=== PATIENT | female | born 1945 | race African-American/Black ===

== ENCOUNTER 2017-05-11 22:37 | Inpatient (IN) | payer MEDICARE, BC ==
[2017-05-11 23:05] LABS: BILIRUBIN,URINE NEGATIVE (NEG); COLOR,URINE YELLOW; GLUCOSE,URINE NEGATIVE (NEG); NITRITE,URINE NEGATIVE (NEG); PH,URINE 5.5; PROTEIN,URINE NEGATIVE (NEG-TRACE)
[2017-05-11 23:13] LABS: CLARITY,URINE CLEAR
[2017-05-11 23:19] LABS: BACTERIA,URINE MANY /HPF (0-FEW); RBC,URINE 0 /HPF (0-2); SQUAMOUS EPITHELIAL CELL,UR MOD /LPF
[2017-05-11] MEDS: DEXAMETHASONE SOD PHOS 4 MG/ML VIAL IV (23:30)
[2017-05-11] MEDS: IPRATRPIUM/ALBUTEROL 0.5/2.5MG 3 ML NEBU. NEB (23:30)
[2017-05-11] MEDS: hydrALAZINE 20 MG/ML VIAL. IVP (23:30)
[2017-05-11 23:39] LABS: INFLUENZA A PATIENT POSITIVE (NEGATIVE); INFLUENZA B PATIENT NEGATIVE (NEGATIVE); OBC FLU VALID
[2017-05-11 23:53] LABS: BASE EXCESS ABG 2 mmol/L (-3-3); HCO3 ABG 23 mmol/L (21-28); PCO2 ABG 28 mmHg (35-46); PH ABG 7.53 (7.35-7.45); PO2 ABG 106 mmHg (65-108); SAT O2 ABG 98 % (92-99)
[2017-05-11 23:57] LABS: ADD MAN DIFF? NO
[2017-05-11 23:59] LABS: BASO % 1 % (0-3); EOS % 1 % (0-3); HEMATOCRIT 41.3 % (36.0-47.0); HEMOGLOBIN 13.8 g/dL (12.0-15.5); LYMPH # 1.6 x10^3/uL (1.0-4.8); LYMPH % 40 % (24-48); MEAN CORPUSCULAR HEMOGLOBIN 26 pg (25-35); MEAN CORPUSCULAR HGB CONC 34 g/dL (31-37); MEAN CORPUSCULAR VOLUME 79 fL (79-100); MONO # 0.6 x10^3/uL (0.0-1.1); MONO % 15 % (0-9); NEUT # 1.7 x10^3uL (1.8-7.7); NEUT % 43 % (31-73); PLATELET COUNT 221 x10^3/uL (140-400); RED BLOOD COUNT 5.24 x10^6/uL (3.50-5.40); RED CELL DISTRIBUTION WIDTH 13.7 % (11.5-14.5)
[2017-05-12 00:14] LABS: ANION GAP 9 (6-14); BLOOD UREA NITROGEN 26 mg/dL (7-20); BUN/CREATININE RATIO 24 (6-20); CALCIUM 8.7 mg/dL (8.5-10.1); CARBON DIOXIDE 24 mmol/L (21-32); CHLORIDE 104 mmol/L (98-107); CREATININE 1.1 mg/dL (0.6-1.0); GFR 48.7; GLUCOSE 193 mg/dL (70-99); SODIUM 137 mmol/L (136-145)
[2017-05-12 00:20] LABS: ALBUMIN 3.3 g/dL (3.4-5.0); ALK PHOS 156 U/L (46-116); ALT (SGPT) 22 U/L (14-59); AST (SGOT) 15 U/L (15-37); LIPASE 221 U/L (73-393); TOTAL BILIRUBIN 0.2 mg/dL (0.2-1.0); TOTAL PROTEIN 6.5 g/dL (6.4-8.2)
[2017-05-12 00:22] LABS: LACTIC ACID 0.9 mmol/L (0.4-2.0)
[2017-05-12] MEDS ORDERED: fentaNYL PF VIAL 100 MCG/2 ML VIAL IV (01:00)
[2017-05-12] MEDS ORDERED: ACETAMINOPHEN 325 MG TABLET. PO (01:00)
[2017-05-12] MEDS ORDERED: ONDANSETRON PF 4 MG/2 ML VIAL. IV (01:00)
[2017-05-12] MEDS: OSELTAMIVIR 75 MG CAPSULE PO ×3 (01:16→21:00)
[2017-05-12] MEDS: IV NORMAL SALINE 1000ML BAG 1,000 ML IV ×3 (02:56→11:56)
[2017-05-12] MEDS: INSULIN ASPART 300 UNITS/3 ML INSULN.PEN SQ ×2 (03:11→17:13)
[2017-05-12] MEDS ORDERED: POTASSIUM CHLORIDE 10 MEQ TABLET.ER. PO (03:15)
[2017-05-12] MEDS: LABETALOL 20 MG/4 ML DISP.SYRIN. IVP (03:20)
[2017-05-12] MEDS: POTASSIUM CHLORIDE 20 MEQ TABLET.ER. PO ×2 (03:31→03:35)
[2017-05-12 04:03] LABS: POC GLUCOSE 290 mg/dL (70-99)
[2017-05-12] MEDS ORDERED: FUROSEMIDE 20 MG TABLET PO (05:15)
[2017-05-12] MEDS ORDERED: ASCORBIC ACID 500 MG TABLET PO (05:15)
[2017-05-12 08:40] LABS: POC GLUCOSE 245 mg/dL (70-99)
[2017-05-12] MEDS: LOSARTAN POTASSIUM 50 MG TABLET. PO (08:46)
[2017-05-12] MEDS: CHOLECALCIFEROL (VITAMIN D3) 1,000 UNIT TABLET PO (08:47)
[2017-05-12] MEDS: VITAMIN B COMPLEX TABLET. PO (08:47)
[2017-05-12] MEDS: PANTOPRAZOLE 40 MG TABLET.DR. PO (08:48)
[2017-05-12] MEDS: OMEGA-3 FATTY ACIDS/FISH OIL 1,000 MG CAPSULE. PO ×2 (08:48→21:00)
[2017-05-12] MEDS: hydrALAZINE 25 MG TABLET PO ×4 (08:48→21:00)
[2017-05-12] MEDS: MULTIVITAMIN with MINERAL TABLET. PO (08:49)
[2017-05-12] MEDS: CALCIUM CARBONATE 500 MG TABLET PO ×2 (08:49→16:59)
[2017-05-12] MEDS: POTASSIUM CHLORIDE 10 MEQ TABLET.ER. PO ×2 (08:49→16:58)
[2017-05-12] MEDS: NON FORMULARY ITEM (Difluprednate (Durezol) 1 DROP) OP (09:00)
[2017-05-12] MEDS: TIMOLOL OP (09:00)
[2017-05-12] MEDS: OFLOXACIN EACHEYE (09:00)
[2017-05-12] MEDS: NON FORMULARY ITEM (Brinzolamide/Brimonid Tart (Simbrinza 1%-0.2% Eye Drops) 1 DROP) OP (09:00)
[2017-05-12] MEDS: INSULIN DETEMIR 300 UNITS/3 ML INSULN.PEN. SQ (09:07)
[2017-05-12] MEDS: cefTRIAXone IV Push 1 GM VIAL. IVP (11:54)
[2017-05-12 12:24] LABS: POC GLUCOSE 303 mg/dL (70-99)
[2017-05-12] MEDS: DUREZOL EYE OD ×3 (13:00→21:00)
[2017-05-12] MEDS: OFLOXACIN OD ×3 (13:00→21:00)
[2017-05-12] MEDS ORDERED: DEXTROSE 50% 25 GM / 50ML DISP.SYRIN. IV (13:15)
[2017-05-12] MEDS: SIMBRINZA EYE OD ×2 (14:00→21:00)
[2017-05-12 16:32] LABS: POC GLUCOSE 232 mg/dL (70-99)
[2017-05-12] MEDS: DOXYCYCLINE HYCLATE 100 MG TABLET PO ×2 (16:58→21:00)
[2017-05-12] MEDS: LACTOBACILLUS RHAMNOSUS GG 1 CAPSULE. PO (21:00)
[2017-05-12] MEDS: TIMOLOL 0.5% OD (21:00)
[2017-05-12] MEDS: EYE OD (21:00)
[2017-05-12 21:26] LABS: POC GLUCOSE 189 mg/dL (70-99)
[2017-05-13] MEDS: IV NORMAL SALINE 1000ML BAG 1,000 ML IV ×2 (00:05→10:29)
[2017-05-13 04:50] LABS: ADD MAN DIFF? NO
[2017-05-13 05:03] LABS: BASO % 0 % (0-3); EOS % 0 % (0-3); HEMATOCRIT 39.1 % (36.0-47.0); HEMOGLOBIN 12.8 g/dL (12.0-15.5); LYMPH # 1.1 x10^3/uL (1.0-4.8); LYMPH % 16 % (24-48); MEAN CORPUSCULAR HEMOGLOBIN 26 pg (25-35); MEAN CORPUSCULAR HGB CONC 33 g/dL (31-37); MEAN CORPUSCULAR VOLUME 80 fL (79-100); MONO # 0.7 x10^3/uL (0.0-1.1); MONO % 10 % (0-9); NEUT # 5.1 x10^3uL (1.8-7.7); NEUT % 74 % (31-73); PLATELET COUNT 210 x10^3/uL (140-400); RED BLOOD COUNT 4.88 x10^6/uL (3.50-5.40); RED CELL DISTRIBUTION WIDTH 13.5 % (11.5-14.5); WHITE BLOOD COUNT 6.9 x10^3/uL (4.0-11.0)
[2017-05-13 05:12] LABS: ANION GAP 9 (6-14); BLOOD UREA NITROGEN 28 mg/dL (7-20); CALCIUM 8.7 mg/dL (8.5-10.1); CARBON DIOXIDE 23 mmol/L (21-32); CHLORIDE 105 mmol/L (98-107); CREATININE 1.1 mg/dL (0.6-1.0); GFR 58.9; GLUCOSE 237 mg/dL (70-99); POTASSIUM 4.3 mmol/L (3.5-5.1); SODIUM 137 mmol/L (136-145)
[2017-05-13] MEDS: PANTOPRAZOLE 40 MG TABLET.DR. PO (06:33)
[2017-05-13] MEDS: OSELTAMIVIR 75 MG CAPSULE PO ×2 (08:15→20:45)
[2017-05-13] MEDS: CHOLECALCIFEROL (VITAMIN D3) 1,000 UNIT TABLET PO (08:16)
[2017-05-13] MEDS: hydrALAZINE 25 MG TABLET PO ×4 (08:16→20:45)
[2017-05-13] MEDS: VITAMIN B COMPLEX TABLET. PO (08:17)
[2017-05-13] MEDS: LACTOBACILLUS RHAMNOSUS GG 1 CAPSULE. PO ×2 (08:17→20:45)
[2017-05-13] MEDS: DOXYCYCLINE HYCLATE 100 MG TABLET PO ×2 (08:18→20:45)
[2017-05-13] MEDS: POTASSIUM CHLORIDE 10 MEQ TABLET.ER. PO ×2 (08:18→17:38)
[2017-05-13] MEDS: CALCIUM CARBONATE 500 MG TABLET PO ×2 (08:18→17:38)
[2017-05-13] MEDS: MULTIVITAMIN with MINERAL TABLET. PO (08:18)
[2017-05-13] MEDS: TIMOLOL 0.5% OD ×2 (08:19→20:46)
[2017-05-13] MEDS: EYE OD ×2 (08:19→20:46)
[2017-05-13] MEDS: SIMBRINZA EYE OD ×3 (08:19→20:46)
[2017-05-13] MEDS: OFLOXACIN OD ×4 (08:20→20:46)
[2017-05-13] MEDS: DUREZOL EYE OD ×4 (08:20→20:46)
[2017-05-13] MEDS: OMEGA-3 FATTY ACIDS/FISH OIL 1,000 MG CAPSULE. PO ×2 (08:23→20:45)
[2017-05-13] MEDS: LOSARTAN POTASSIUM 50 MG TABLET. PO (08:23)
[2017-05-13] MEDS: INSULIN ASPART 300 UNITS/3 ML INSULN.PEN SQ ×3 (08:28→17:00)
[2017-05-13] MEDS: INSULIN DETEMIR 300 UNITS/3 ML INSULN.PEN. SQ (08:28)
[2017-05-13 08:36] LABS: POC GLUCOSE 189 mg/dL (70-99)
[2017-05-13] MEDS: cefTRIAXone IV Push 1 GM VIAL. IVP (10:29)
[2017-05-13 12:53] LABS: POC GLUCOSE 165 mg/dL (70-99)
[2017-05-13 17:26] LABS: POC GLUCOSE 112 mg/dL (70-99)
[2017-05-13 21:27] LABS: POC GLUCOSE 172 mg/dL (70-99)
[2017-05-14] MEDS: IV NORMAL SALINE 1000ML BAG 1,000 ML IV (02:45)
[2017-05-14] MEDS: LABETALOL 20 MG/4 ML DISP.SYRIN. IVP (03:54)
[2017-05-14 04:50] LABS: ADD MAN DIFF? NO
[2017-05-14 05:00] LABS: BASO % 0 % (0-3); EOS % 0 % (0-3); HEMATOCRIT 42.5 % (36.0-47.0); HEMOGLOBIN 13.6 g/dL (12.0-15.5); LYMPH # 1.7 x10^3/uL (1.0-4.8); LYMPH % 24 % (24-48); MEAN CORPUSCULAR HEMOGLOBIN 26 pg (25-35); MEAN CORPUSCULAR HGB CONC 32 g/dL (31-37); MEAN CORPUSCULAR VOLUME 80 fL (79-100); MONO # 0.7 x10^3/uL (0.0-1.1); MONO % 10 % (0-9); NEUT # 4.6 x10^3uL (1.8-7.7); NEUT % 66 % (31-73); PLATELET COUNT 235 x10^3/uL (140-400); RED BLOOD COUNT 5.31 x10^6/uL (3.50-5.40); RED CELL DISTRIBUTION WIDTH 13.7 % (11.5-14.5)
[2017-05-14 05:23] LABS: ANION GAP 9 (6-14); BLOOD UREA NITROGEN 24 mg/dL (7-20); CALCIUM 9.1 mg/dL (8.5-10.1); CARBON DIOXIDE 26 mmol/L (21-32); CHLORIDE 105 mmol/L (98-107); CREATININE 1.2 mg/dL (0.6-1.0); GFR 53.3; GLUCOSE 142 mg/dL (70-99); POTASSIUM 3.9 mmol/L (3.5-5.1); SODIUM 140 mmol/L (136-145)
[2017-05-14] MEDS: PANTOPRAZOLE 40 MG TABLET.DR. PO (07:25)
[2017-05-14 07:54] LABS: POC GLUCOSE 127 mg/dL (70-99)
[2017-05-14] MEDS: INSULIN ASPART 300 UNITS/3 ML INSULN.PEN SQ ×2 (08:00→12:22)
[2017-05-14] MEDS: CALCIUM CARBONATE 500 MG TABLET PO (08:00)
[2017-05-14] MEDS: DOXYCYCLINE HYCLATE 100 MG TABLET PO (08:14)
[2017-05-14] MEDS: OMEGA-3 FATTY ACIDS/FISH OIL 1,000 MG CAPSULE. PO (08:14)
[2017-05-14] MEDS: VITAMIN B COMPLEX TABLET. PO (08:14)
[2017-05-14] MEDS: hydrALAZINE 25 MG TABLET PO ×2 (08:14→12:17)
[2017-05-14] MEDS: POTASSIUM CHLORIDE 10 MEQ TABLET.ER. PO (08:14)
[2017-05-14] MEDS: OSELTAMIVIR 75 MG CAPSULE PO (08:15)
[2017-05-14] MEDS: LACTOBACILLUS RHAMNOSUS GG 1 CAPSULE. PO (08:15)
[2017-05-14] MEDS: LOSARTAN POTASSIUM 50 MG TABLET. PO (08:15)
[2017-05-14] MEDS: MULTIVITAMIN with MINERAL TABLET. PO (08:16)
[2017-05-14] MEDS: CHOLECALCIFEROL (VITAMIN D3) 1,000 UNIT TABLET PO (08:17)
[2017-05-14] MEDS: DUREZOL EYE OD ×2 (08:18→12:19)
[2017-05-14] MEDS: OFLOXACIN OD ×2 (08:18→12:19)
[2017-05-14] MEDS: TIMOLOL 0.5% OD (08:19)
[2017-05-14] MEDS: EYE OD (08:19)
[2017-05-14] MEDS: SIMBRINZA EYE OD (08:19)
[2017-05-14] MEDS: INSULIN DETEMIR 300 UNITS/3 ML INSULN.PEN. SQ (08:29)
[2017-05-14 12:13] LABS: POC GLUCOSE 211 mg/dL (70-99)
== END 2017-05-14 16:15 | disposition home or self-care (01) | DRG 871 ==
LOC: ER 22:37 → 4 NORTH 05-12 01:02
DX: A41.9 Sepsis, unspecified organism (principal); J09.X1 Influenza due to identified novel influenza A virus with pneumonia; E46 Unspecified protein-calorie malnutrition; E11.65 Type 2 diabetes mellitus with hyperglycemia; N39.0 Urinary tract infection, site not specified; Z68.42 Body mass index [BMI] 45.0-49.9, adult; I16.0 Hypertensive urgency; J20.8 Acute bronchitis due to other specified organisms; E78.5 Hyperlipidemia, unspecified; H40.9 Unspecified glaucoma; I10 Essential (primary) hypertension; K21.9 Gastro-esophageal reflux disease without esophagitis; M19.90 Unspecified osteoarthritis, unspecified site; M81.0 Age-related osteoporosis without current pathological fracture; Z82.49 Family history of ischemic heart disease and other diseases of the circulatory system; Z87.891 Personal history of nicotine dependence; Z88.1 Allergy status to other antibiotic agents; Z88.8 Allergy status to other drugs, medicaments and biological substances; F41.9 Anxiety disorder, unspecified
CPT/HCPCS: 36415; 36600; 71045; 80048; 80053; 81001; 82805; 82962; 83605; 83690; 85025; 87040; 87086; 87186; 87804; 87804-59; 93005; 94640; 96374; 96375; 97161-GP; 97166-GO; 97535-GO; 99285; 99285-25; J0360; J0696; J1100; J1815; J3490; J7030; J7620